=== PATIENT | male | born 1990 | race Caucasian/White ===

== ENCOUNTER 2017-03-11 07:11 | Emergency (ER) | payer MEDICAID ==
[2017-03-11 08:44] LABS: CALCIUM 9.1 mg/dL (8.5-10.1); CARBON DIOXIDE 32.5 mmol/L (21-32); CHLORIDE SERUM 99 mmol/L (98-107); CREATININE SERUM 0.7 mg/dL (0.7-1.3); GFR1 > 60 mL/min; GLUCOSE SERUM 327 mg/dL (74-106); POTASSIUM SERUM 3.6 mmol/L (3.5-5.1); SODIUM SERUM 137 mmol/L (136-145)
[2017-03-11 09:00] VITALS: BP 138/89
== END 2017-03-11 09:00 | disposition home or self-care (01) ==
LOC: ED 07:11
PROVIDERS: Emergency Medicine
DX: S86.911A Strain of unspecified muscle(s) and tendon(s) at lower leg level, right leg, initial encounter (principal); X58.XXXA Exposure to other specified factors, initial encounter; E11.65 Type 2 diabetes mellitus with hyperglycemia; R51 Headache; I10 Essential (primary) hypertension; Y93.89 Activity, other specified; Y99.8 Other external cause status; Y92.89 Other specified places as the place of occurrence of the external cause
CPT/HCPCS: 36415; J0780; J1885; Q0092